=== PATIENT | male | born 1965 | race Caucasian/White ===

== ENCOUNTER 2016-05-07 19:23 | Emergency (ER) | payer BC ==
--- NOTE | 2016-05-07 20:34 | ED ---
Eye Problem HPI - General Chief complaint: Eye Problems Stated complaint: Eye Problem Time Seen by Provider: 05/07/16 20:23 Source: patient, RN notes reviewed Mode of arrival: ambulatory Limitations: no limitations - History of Present Illness Initial comments: 51-year-old male presents emergency Department with left eye irritation. Patient states she's had some irritation since last week seen his primary care physician given Toradol eyedrops, Tobrex eyedrops. Patient states that he woke up with fell on Friday went to urgent care who told him to come back to the office on Friday to see a specialist though the specialist was not in. Patient states that he woke up today felt much better but states that certain having irritation again and felt like something was shifting in his eye. He states he did not have any change in vision this afternoon he states his just sharp shooting pain. Patient does have a history of hypertension controlled medication denies diabetes. - Related Data Home Medications Medication Instructions Recorded Confirmed Aspirin 81 mg PO DAILY 01/16/14 05/07/16 Clopidogrel Bisulfate [Plavix] 75 mg PO DAILY 01/16/14 05/07/16 Simvastatin [Zocor] 40 mg PO HS 01/16/14 05/07/16 Enalapril [Vasotec] 2.5 mg PO DAILY 11/16/14 05/07/16 Escitalopram [Lexapro] 20 mg PO DAILY 11/16/14 05/07/16 Omeprazole 20 mg PO DAILY 06/12/15 05/07/16 Cholecalciferol [Vitamin D3] 2,000 unit PO DAILY 05/07/16 05/07/16 Ketorolac 0.5% Ophth Soln [Acular] 1 drops LEFT EYE QID 05/07/16 05/07/16 Nitroglycerin Sl Tabs [Nitrostat] 0.4 mg SUBLINGUAL Q5M PRN 05/07/16 05/07/16 Tobramycin 0.3% Ophth Soln [Tobrex 1 drop LEFT EYE Q6H 05/07/16 05/07/16 0.3% Ophth Soln] traZODone HCL [Desyrel] 100 mg PO HS 05/07/16 05/07/16 Allergies Allergy/AdvReac Type Severity Reaction Status Date / Time No Known Allergies Allergy Verified 05/07/16 20:25 Review of Systems ROS Statement: Those systems with pertinent positive or pertinent negative responses have been documented in the HPI. ROS Other: All systems not noted in ROS Statement are negative. Past Medical History Past Medical History: GERD/Reflux, Hyperlipidemia, Hypertension, Myocardial Infarction (ID) History of Any Multi-Drug Resistant Organisms: None Reported Past Surgical History: Heart Catheterization With Stent, Orthopedic Surgery Additional Past Surgical History / Comment(s): Left foot surgery Past Psychological History: No Psychological Hx Reported Smoking Status: Former smoker Past Alcohol Use History: None Reported Past Drug Use History: None Reported General Exam Limitations: no limitations General appearance: alert, in no apparent distress Head exam: Present: atraumatic, normocephalic, normal inspection Eye exam: Present: normal appearance, PERRL, EOMI, other (Large ulcerated area in the left lower eyelid). Absent: scleral icterus, conjunctival injection, periorbital swelling ENT exam: Present: normal exam, normal oropharynx, mucous membranes moist, TM's normal bilaterally, normal external ear exam Neck exam: Present: normal inspection, full ROM. Absent: tenderness, meningismus, lymphadenopathy Respiratory exam: Present: normal lung sounds bilaterally. Absent: respiratory distress, wheezes, rales, rhonchi, stridor Cardiovascular Exam: Present: regular rate, normal rhythm, normal heart sounds. Absent: systolic murmur, diastolic murmur, rubs, gallop, clicks Course Vital Signs 05/07/16 05/07/16 20:03 20:20 Temperature 97.4 F L Pulse Rate 71 69 Respiratory 18 20 Rate Blood Pressure 135/103 133/66 O2 Sat by Pulse 96 97 Oximetry Medical Decision Making - Medical Decision Making 51-year-old male presented for left eye irritation. Patient has internal stye. Patient already has Tobrex eye drops and Toradol. He'll continue disease. Patient we given on-call radar engineering teacher Dr. hank gates. He may follow-up in office with him. Return parameters were discussed. Disposition Clinical Impression: Internal hordeolum of left eye Disposition: HOME SELF-CARE Condition: Stable Instructions: Stye (ED) Additional Instructions: Continue Tobrex eye drops as directed. Please follow-up with radar engineering teacher next one to days. Return to emergency department if symptoms worsen or any other concerns. Referrals: Susan Rutledge MD [Primary Care Provider] - 1-2 days Louie Jamison MD [STAFF PHYSICIAN] - 1-2 days Time of Disposition: 20:34
[2016-05-07 20:53] VITALS: BP 140/83; PULSE 68; RESP 18; TEMP 97.8
== END 2016-05-07 20:42 | disposition home or self-care (01) ==
LOC: EC 19:23
DX: H00.026 Hordeolum internum left eye, unspecified eyelid (principal); H00.016 Hordeolum externum left eye, unspecified eyelid; K21.9 Gastro-esophageal reflux disease without esophagitis; E78.5 Hyperlipidemia, unspecified; I10 Essential (primary) hypertension; I25.2 Old myocardial infarction; Z87.891 Personal history of nicotine dependence; Z79.82 Long term (current) use of aspirin; Z79.01 Long term (current) use of anticoagulants; Z79.899 Other long term (current) drug therapy
CPT/HCPCS: 99283

== ENCOUNTER → 2022-11-06 | Outpatient (CLI) | payer BC ==
--- NOTE | 2022-11-06 10:33 | CT ---
EXAMINATION TYPE: CT chest w con DATE OF EXAM: 11/06/2022 COMPARISON: 04/22/2022 HISTORY: Follow up for solitary pulmonary nodule. CT DLP: 250.3 mGycm Automated exposure control for dose reduction was used. CONTRAST: CT scan of the chest is performed with IV Contrast, patient injected with 100ml mL of Isovue 300. FINDINGS: LUNGS: The lungs are grossly clear, there is no concerning parenchymal mass or nodule identified. Sma ll focal area of groundglass density left upper lobe is redemonstrated and appears smaller in size an d is likely postinflammatory in nature. There is no pleural effusion or pneumothorax seen. The trac heobronchial tree is patent. MEDIASTINUM: There are no greater than 1 cm hilar or mediastinal lymph nodes. No pericardial effusi on is seen. Thoracic aorta is of normal caliber. The heart is not enlarged. UPPER ABDOMEN: No significant abnormality appreciated. OTHER: No additional significant abnormality is seen. IMPRESSION: Small focal area of groundglass density left upper lobe is redemonstrated and appears smaller in size and is likely postinflammatory in nature.
== END | disposition home or self-care (01) ==
LOC: RADCTMAIN 09:29
PROVIDERS: ATTEND Family Medicine
DX: J98.4 Other disorders of lung (principal); R91.1 Solitary pulmonary nodule
CPT/HCPCS: 71260; Q9967

== ENCOUNTER 2023-04-01 10:59 | Emergency (ER) | payer BC ==
[2023-04-01 11:26] VITALS: RESP 18
[2023-04-01 11:27] VITALS: TEMP 97.1
--- NOTE | 2023-04-01 11:36 | ED ---
General Adult HPI - General Chief complaint: Chest Pain Stated complaint: Chest Pain Time Seen by Provider: 04/01/23 11:03 Source: patient, EMS, RN notes reviewed, old records reviewed Mode of arrival: EMS Limitations: no limitations - History of Present Illness Initial comments: 58 old male presenting for evaluation of central chest pain. Patient was at the [facility], he was receiving his sentence for residential time. He began having a central chest pain with associated lightheadedness and nausea. He was transported by paramedics given aspirin and nitroglycerin. His chest pain is resolved at the time my evaluation. He does appear somewhat anxious. He has history of CAD, hyperlipidemia, hypertension. - Related Data Home Medications Medication Instructions Recorded Confirmed Clopidogrel Bisulfate [Plavix] 75 mg PO DAILY 01/16/14 04/01/23 Simvastatin [Zocor] 40 mg PO HS 01/16/14 04/01/23 Escitalopram [Lexapro] 20 mg PO DAILY 11/16/14 04/01/23 Nitroglycerin Sl Tabs [Nitrostat] 0.4 mg SUBLINGUAL Q5M PRN 05/07/16 04/01/23 traZODone HCL [Desyrel] 100 mg PO HS 05/07/16 04/01/23 Enalapril [Vasotec] 2.5 mg PO DAILY 04/01/23 04/01/23 Allergies Allergy/AdvReac Type Severity Reaction Status Date / Time No Known Allergies Allergy Verified 04/01/23 12:30 Review of Systems ROS Statement: Those systems with pertinent positive or pertinent negative responses have been documented in the HPI. ROS Other: All systems not noted in ROS Statement are negative. Past Medical History Past Medical History: GERD/Reflux, Hyperlipidemia, Hypertension, Myocardial Infa rction (NV) History of Any Multi-Drug Resistant Organisms: None Reported Past Surgical History: Heart Catheterization With Stent, Orthopedic Surgery Additional Past Surgical History / Comment(s): Left foot surgery Past Psychological History: No Psychological Hx Reported Smoking Status: Current every day smoker Past Alcohol Use History: Occasional Past Drug Use History: None Reported General Exam Limitations: no limitations General appearance: alert, anxious Head exam: Present: atraumatic, normocephalic Eye exam: Present: normal appearance, PERRL ENT exam: Present: normal exam Neck exam: Present: normal inspection. Absent: tenderness, meningismus Respiratory exam: Present: normal lung sounds bilaterally. Absent: respiratory distress, wheezes Cardiovascular Exam: Present: regular rate, normal rhythm GI/Abdominal exam: Present: soft. Absent: distended, tenderness, guarding Extremities exam: Present: normal inspection, normal capillary refill. Absent: pedal edema, calf tenderness Neurological exam: Present: alert, oriented X3 Psychiatric exam: Present: anxious Skin exam: Present: warm, dry, intact Course Vital Signs 04/01/23 04/01/23 11:00 11:07 Temperature 97.1 F L Pulse Rate 69 Respiratory 18 Rate Blood Pressure 165/97 O2 Sat by Pulse 98 Oximetry Medical Decision Making - Medical Decision Making Was pt. sent in by a medical professional or institution (, PA, PURCHASING SUPERVISOR, urgent care, hospital, or fdc...) When possible be specific @ -No Did you speak to anyone other than the patient for history (EMS, parent, family, police, friend...)? What history was obtained from this source @ -No Did you review nursing and triage notes (agree or disagree)? Why? @ -I reviewed and agree with nursing and triage notes Were old charts reviewed (outside hosp., previous admission, EMS record, old EKG, old radiological studies, urgent care reports/EKG's, fdc records)? Report findings @ -No old charts were reviewed Differential Diagnosis (chest pain, altered mental status, abdominal pain women, abdominal pain men, vaginal bleeding, weakness, fever, dyspnea, syncope, headache, dizziness, GI bleed, back pain, seizure, CVA, palpatations, mental health, musculoskeletal)? @ Differential Chest Pain: Stable Angina, Unstable Angina, STEMI, NSTEMI Aortic Dissection, Pneumothorax, Musculoskeletal, Esophageal Spasm GERD, Cholecystitis, Pancreatitis, Zoster, this is not meant to be an all-inclusive list. EKG interpreted by me (3pts min.). @EKG sinus bradycardia rate of 52, AK interval 170, QRS duration 118, QTC [address] segment elevation. X-rays interpreted by me (1pt min.). @ -[Chest x-ray negative for acute cardiopulmonary findings. CT interpreted by me (1pt min.). @ -None done U/S interpreted by me (1pt. min.). @ -None done What testing was considered but not performed or refused? (CT, X-rays, U/S, labs)? Why? @ -None What meds were considered but not given or refused? Why? @ -None Did you discuss the management of the patient with other professionals (professionals i.e. , PA, PURCHASING SUPERVISOR, lab, RT, psych nurse, social media assistant, cattle inspector, teacher, operations officer afloat, case management social worker)? Give summary @ -No Was smoking cessation discussed for >3mins.? @ -No Was critical care preformed (if so, how long)? @ -No Were there social determinants of health that impacted care today? How? (Homelessness, low income, unemployed, alcoholism, drug addiction, transportation, low edu. Level, literacy, decrease access to med. care, residential, rehab)? @ -No Was there de-escalation of care discussed even if they declined (Discuss DNR or withdrawal of care, Hospice)? DNR status @ -No What co-morbidities impacted this encounter? (DM, HTN, Smoking, COPD, CAD, Cancer, CVA, ARF, Chemo, Hep., AIDS, mental health diagnosis, sleep apnea, morbid obesity)? @Hypertension, CAD Was patient admitted / discharged? Hospital course, mention meds given and route, prescriptions, significant lab abnormalities, going to OR and other pertinent info. @ -58-year-old male with an episode of chest pain, resolved at the time my evaluation per this was associated with anxiety secondary to being sentenced to residential time. Patient's EKG sinus rhythm without definitive signs of ischemia. His chest x-ray is clear. Patient has a normal CBC, normal CMP, initial tropon in is negative and repeat 3 hour troponin is also negative Undiagnosed new problem with uncertain prognosis? @ -No Drug Therapy requiring intensive monitoring for toxicity (Heparin, Nitro, Insulin, Cardizem)? @ -No Were any procedures done? @ -No Diagnosis/symptom? @ -Chest pain Acute, or Chronic, or Acute on Chronic? @ -[acute Uncomplicated (without systemic symptoms) or Complicated (systemic symptoms)? @ complicated Side effects of treatment? @ -No Exacerbation, Progression, or Severe Exacerbation? @ -No Poses a threat to life or bodily function? How? (Chest pain, [place], [place], pneumonia, PE, COPD, DKA, ARF, appy, cholecystitis, CVA, Diverticulitis, Homicidal, Suicidal, threat to staff... and all critical care pts) @ -low risk - Lab Data Result diagrams: 04/01/23 13:14 04/01/23 13:14 Lab Results 04/01/23 04/01/23 04/01/23 Range/Units 13:14 13:14 13:14 WBC 7.4 (3.8-10.6) k/uL RBC 5.08 (4.30-5.90) m/uL Hgb 15.5 (13.0-17.5) gm/dL Hct 45.8 (39.0-53.0) % MCV 90.1 (80.0-100.0) fL MCH 30.5 (25.0-35.0) pg MCHC 33.8 (31.0-37.0) g/dL RDW 13.2 (11.5-15.5) % Plt Count 272 (150-450) k/uL MPV 8.1 Neutrophils % 67 % Lymphocytes % 22 % Monocytes % 8 % Eosinophils % 2 % Basophils % 1 % Neutrophils # 5.0 (1.3-7.7) k/uL Lymphocytes # 1.6 (1.0-4.8) k/uL Monocytes # 0.6 (0-1.0) k/uL Eosinophils # 0.1 (0-0.7) k/uL Basophils # 0.0 (0-0.2) k/uL PT 10.5 (10.0-12.5) sec INR 0.9 (<1.2) APTT 23.8 (22.0-30.0) sec Sodium 139 (137-145) mmol/L Potassium 4.6 (3.5-5.1) mmol/L Chloride 107 (98-107) mmol/L Carbon Dioxide 21 L (22-30) mmol/L Anion Gap 11 mmol/L BUN 10 (9-20) mg/dL Creatinine 0.70 (0.66-1.25) mg/dL Est GFR (CKD-EPI)AfAm >90 (>60 ml/min/1.73 sqM) Est GFR (CKD-EPI)NonAf >90 (>60 ml/min/1.73 sqM) Glucose 92 (74-99) mg/dL Calcium 9.6 (8.4-10.2) mg/dL Magnesium 2.0 (1.6-2.3) mg/dL Total Bilirubin 0.5 (0.2-1.3) mg/dL AST 27 (17-59) U/L ALT 26 (4-49) U/L Alkaline Phosphatase 87 (38-126) U/L Troponin I (0.000-0.034) ng/mL Total Protein 7.2 (6.3-8.2) g/dL Albumin 4.7 (3.5-5.0) g/dL 04/01/23 04/01/23 Range/Units 13:14 14:23 WBC (3.8-10.6) k/uL RBC (4.30-5.90) m/uL Hgb (13.0-17.5) gm/dL Hct (39.0-53.0) % MCV (80.0-100.0) fL MCH (25.0-35.0) pg MCHC (31.0-37.0) g/dL RDW (11.5-15.5) % Plt Count (150-450) k/uL MPV Neutrophils % % Lymphocytes % % Monocytes % % Eosinophils % % Basophils % % Neutrophils # (1.3-7.7) k/uL Lymphocytes # (1.0-4.8) k/uL Monocytes # (0-1.0) k/uL Eosinophils # (0-0.7) k/uL Basophils # (0-0.2) k/uL PT (10.0-12.5) sec INR (<1.2) APTT (22.0-30.0) sec Sodium (137-145) mmol/L Potassium (3.5-5.1) mmol/L Chloride (98-107) mmol/L Carbon Dioxide (22-30) mmol/L Anion Gap mmol/L BUN (9-20) mg/dL Creatinine (0.66-1.25) mg/dL Est GFR (CKD-EPI)AfAm (>60 ml/min/1.73 sqM) Est GFR (CKD-EPI)NonAf (>60 ml/min/1.73 sqM) Glucose (74-99) mg/dL Calcium (8.4-10.2) mg/dL Magnesium (1.6-2.3) mg/dL Total Bilirubin (0.2-1.3) mg/dL AST (17-59) U/L ALT (4-49) U/L Alkaline Phosphatase (38-126) U/L Troponin I <0.012 <0.012 (0.000-0.034) ng/mL Total Protein (6.3-8.2) g/dL Albumin (3.5-5.0) g/dL Disposition Clinical Impression: Chest pain Disposition: HOME SELF-CARE Condition: Good Instructions (If sedation given, give patient instructions): Chest Pain (ED) Is patient prescribed a controlled substance at d/c from ED?: No Referrals: Susan Rutledge MD [Primary Care Provider] - 1-2 days Time of Disposition: 15:02
--- NOTE | 2023-04-01 11:47 | XR ---
EXAMINATION TYPE: XR chest 2V DATE OF EXAM: 04/01/2023 COMPARISON: 11/06/2022 TECHNIQUE: PA and lateral views submitted. HISTORY: Chest pain FINDINGS: The lungs are clear and there is no pneumothorax, pleural effusion, or focal pneumonia. Heart size normal and no overt failure. Osseous structures demonstrate hypertrophic and degenerative changes of the spine. Hyperinflation compatible COPD. Nodule noted by recent CT scan less well seen by standard x-ray. IMPRESSION: 1. No acute process.
[2023-04-01 13:43] LABS: INR 0.9 (<1.2); Partial Thromboplastin Time 23.8 sec (22.0-30.0); Prothrombin Time 10.5 sec (10.0-12.5)
[2023-04-01 13:49] LABS: Basophils % (A) 1 %; Eosinophils # (A) 0.1 k/uL (0-0.7); Eosinophils % (A) 2 %; HCT 45.8 % (39.0-53.0); HGB 15.5 gm/dL (13.0-17.5); Lymphocytes # (A) 1.6 k/uL (1.0-4.8); Lymphocytes % (A) 22 %; MCH 30.5 pg (25.0-35.0); MCHC 33.8 g/dL (31.0-37.0); MCV 90.1 fL (80.0-100.0); Mean Platelet Volume 8.1; Monocytes # (A) 0.6 k/uL (0-1.0); Monocytes % (A) 8 %; Neutrophils % (A) 67 %; Platelet Count 272 k/uL (150-450); RBC 5.08 m/uL (4.30-5.90); RDW 13.2 % (11.5-15.5); WBC 7.4 k/uL (3.8-10.6)
[2023-04-01 13:55] LABS: ALT 26 U/L (4-49); AST 27 U/L (17-59); African American GFR (CKD) >90 (>60 ml/min/1.73 sqM); Albumin 4.7 g/dL (3.5-5.0); Alkaline Phosphatase 87 U/L (38-126); Anion Gap 11 mmol/L; Blood Urea Nitrogen 10 mg/dL (9-20); Calcium 9.6 mg/dL (8.4-10.2); Carbon Dioxide 21 mmol/L (22-30); Chloride 107 mmol/L (98-107); Glucose 92 mg/dL (74-99); Non-African American GFR(CKD) >90 (>60 ml/min/1.73 sqM); Potassium 4.6 mmol/L (3.5-5.1); Sodium 139 mmol/L (137-145); Total Bilirubin 0.5 mg/dL (0.2-1.3); Total Protein 7.2 g/dL (6.3-8.2)
[2023-04-01 15:45] VITALS: BP 154/89; PULSE 60
== END 2023-04-01 15:24 | disposition home or self-care (01) ==
LOC: EC 10:59
DX: R07.89 Other chest pain (principal); I10 Essential (primary) hypertension; I25.10 Atherosclerotic heart disease of native coronary artery without angina pectoris; I25.2 Old myocardial infarction; E78.5 Hyperlipidemia, unspecified; F17.200 Nicotine dependence, unspecified, uncomplicated; Z79.02 Long term (current) use of antithrombotics/antiplatelets; Z79.899 Other long term (current) drug therapy
CPT/HCPCS: 36415; 71046; 80053; 83735; 84484; 85025; 85610; 85730; 93005; 99285

== ENCOUNTER → 2023-12-22 | Outpatient (CLI) | payer BC ==
--- NOTE | 2023-12-29 22:50 | P.PCN ---
Date of Procedure: 12/22/23 Operative Findings: Home sleep study report Date of service is 12/22/2023 Pertinent history 58-year-old male patient suspected to have obstructive sleep apnea. Based on that, a home sleep study was ordered. The patient has history of snoring. The patient has history of coronary artery disease, hypertension, hyperlipidemia and history of depression. He suffers from chronic back pain. Pertinent physical findings The patient has a weight of 179 pounds with a body mass index of 24.3 Technical description The [employer] system was used to complete his home sleep study. This is a type III home sleep study evaluation. The total recording duration was 8 hours and 5 minutes. The study started at 11:24 PM and ended at 7 30 a.m. There was a total of 7 hours and 45 minutes of flow monitoring and 6 hours and 50 minutes of oxygen saturation monitoring Results The respiratory analysis showed a total of 3 obstructive apneas and 4 obstructive hypopneas. The resulting AHI was 0.9 Oxygenation analysis The baseline pulse ox was 91%. The average pulse ox during sleep was 89%. The minimum pulse ox was 76% and the patient spent approximately 4 hours and 22 minutes of the sleep time at a pulse ox of below 89%. Cardiac summary Average heart rate was 56 with a minimum heart rate of 40 and a maximum heart of 188 Assessment Primary snoring, no evidence of any significant sleep breathing disorder. AHI 0.9. Chronic hypoxemia with a baseline pulse ox of 91% while awake. Mild nocturnal oxygen desaturations. Coronary artery disease Hypertension Hyperlipidemia Depression Acid reflux Chronic smoking plan No need for CPAP therapy. No significant sleep breathing disorder. Patient does have some baseline hypoxemia on mild nocturnal oxygen saturation. Optimize respiratory status. Follow-up with pulmonary. Obtain a PFT if not already done. Smoking cessation. Treatment of comorbidities.
== END | disposition home or self-care (01) ==
LOC: 3 N SLEEP 10:40
PROVIDERS: ATTEND Internal Medicine Critical Care Medicine

== ENCOUNTER → 2024-02-26 | Outpatient (CLI) | payer BC ==
--- NOTE | 2024-02-26 19:21 | CT ---
EXAMINATION TYPE: CT chest w con DATE OF EXAM: 02/26/2024 4:29 PM COMPARISON: 11/06/2022 CLINICAL INDICATION: Male, 59 years old with history of R91.1 LUNG NODULE; H, F/u for solitary pulm onary nodule. TECHNIQUE: Multiple axial images were obtained through the chest. Sagittal and coronal reformats were created for review. MIP was performed on a separate workstation. Contrast used:100cc mL of Isovue 300 with IV Contrast (None if empty) Oral contrast used: (None if empty) CT DLP: 507 mGycm, Automated exposure control for dose reduction was used. FINDINGS: LUNGS/ PLEURA: No focal consolidation, pneumothorax or pleural effusion. Left upper lung ground glas s opacity possibly represent scarring measuring up to 12 mm, similar to prior. AIRWAY: Patent and unremarkable. HEART: Size within normal limits. MEDIASTINUM: No gross evidence of adenopathy. VASCULATURE: No aortic aneurysm. MUSCULOSKELETAL: No acute osseous abnormalities SOFT TISSUES/LYMPH NODES: Unremarkable. LOWER NECK: No significant findings. UPPER ABDOMEN: No significant findings. IMPRESSION: Stable left upper lung ground glass opacity. No new or enlarging suspicious masses or nodules. No lym phadenopathy. If the patient meets criteria considered low-dose lung cancer screening yearly. Follow up recommendations for incidental pulmonary nodules, if there are any, are per [employer] or [employer]. https://[employer]iopaedia.org/articles/gbvqhgttkf-sgmqpzp-xhwqkzwjs-nxipgp-tcqqbgrtydxdnmp-[email or web address]?lang=us [facility], , 02/26/2024 7:19 PM
== END | disposition home or self-care (01) ==
LOC: RADCTMAIN 15:31
PROVIDERS: ATTEND Internal Medicine
DX: R91.1 Solitary pulmonary nodule (principal)
CPT/HCPCS: 71260; Q9967